=== PATIENT | female | born 1970 | race Caucasian/White ===

== ENCOUNTER 2016-07-15 15:45 | Emergency (ER) | payer BC, OTHER ==
[2016-07-15] MEDS ORDERED: ONDANSETRON HCL IV 4 MG/2 ML VIAL IV ONE (16:40)
[2016-07-15] MEDS ORDERED: 0.9 % SODIUM CHLORIDE 1,000 ML BAG IV ONE (16:40)
[2016-07-15] MEDS ORDERED: MORPHINE SULFATE 5 MG/ML PFS IVP ONE (16:41)
--- NOTE | 2016-07-15 16:42 | Emergency Department Record ---
History of Present Illness - General Chief Complaint: Abdominal Pain Stated Complaint: ABD PAIN Time Seen by Provider: 07/15/16 16:35 Source: Patient Mode of Arrival: Ambulatory - History of Present Illness Initial Comments: 46 yo female presents with left sided abdominal pain since Saturday. The pain comes and goes. It is sharp in nature. No fevers, chills, nausea, or vomiting. No rash. She pain is sharp. She has had prior renal stones. This is similar in character prior stones. No changes in urination or bowel movements. No history of abdominal surgery. MD Complaint: Abdominal pain Onset/Timin -: Week(s) Location: Suprapubic, LLQ Severity: Moderate Quality: Sharp Consistency: Intermittent Improves With: Nothing Worsens With: Nothing Treatments Prior to Arrival: NSAIDs - Related Data Patient : No Home Medications Medication Instructions Recorded Confirmed Last Taken Omeprazole [Omeprazole] 40 mg PO DAILY 01/28/16 07/15/16 07/15/16 Previous Rx's Medication Instructions Recorded Hyoscyamine Sulfate [Levsin-Sl] 0.125 mg SL Q12H #15 tab.subl 07/15/16 Allergies Allergy/AdvReac Type Severity Reaction Status Date / Time Sulfa (Sulfonamide Allergy ANAPHYLAXIS Verified 07/15/16 16:18 Antibiotics) latex AdvReac RASH Verified 07/15/16 16:18 Travel Screening - Travel/Exposure Within Last 30 Days Have you traveled within the last 30 days?: No - Travel/Exposure Within Last Year Have you traveled outside the [place] in the last year?: No - Additonal Travel Details Have you been exposed to anyone with a communicable illness?: No - Travel Symptoms Symptom Screening: None Review of Systems Constitutional: Denies: Chills, Fever, Malaise, Night sweats, Weakness Eyes: Denies: Eye discharge ENT: Denies: Congestion, Epistaxis, Throat pain Respiratory: Denies: Cough, Dyspnea, Hemoptysis, Stridor, Wheezes Cardiovascular: Denies: Chest pain, Palpitations, Syncope Endocrine: Denies: Fatigue Gastrointestinal: Reports: Abdominal pain. Denies: Constipation, Diarrhea, Hematemesis, Hematochezia, Nausea, Vomiting Genitourinary: Denies: Dysuria Musculoskeletal: Denies: Arthralgia, Joint swelling, Myalgia Skin: Denies: Bruising, Change in color Neurological: Denies: Headache, Numbness Psychiatric: Denies: Anxiety Hematological/Lymphatic: Denies: Blood Clots, Easy bleeding, Easy bruising, Swollen glands Past Medical History - SOCIAL HISTORY Smoking Status: Never smoker Alcohol Use: None Drug Use: None - RESPIRATORY Hx Respiratory Disorders: No - CARDIOVASCULAR Hx Cardio Disorders: No - NEURO Hx Neuro Disorders: No - GI Hx GI Disorders: Yes Hx Reflux: Yes - Hx Genitourinary Disorders: No - ENDOCRINE Hx Endocrine Disorders: No - MUSCULOSKELETAL Hx Musculoskeletal Disorders: No - PSYCH Hx Psych Problems: No - HEMATOLOGY/ONCOLOGY Hx Hematology/Oncology Disorders: No Family Medical History Any Significant Family History?: No Physical Exam - General General Appearance: Alert, Oriented x3, Cooperative, No acute distress Limitations: No limitations - Head Head exam: Normal inspection - Eye Eye exam: Normal appearance. negative: Conjunctival injection, Scleral icterus - ENT ENT exam: Normal exam Ear exam: Normal external inspection Nasal Exam: Normal inspection Mouth exam: Normal external inspection Teeth exam: Normal inspection Throat exam: Normal inspection - Neck Neck exam: Normal inspection, Full ROM. negative: Tenderness - Respiratory Respiratory exam: Normal lung sounds bilaterally. negative: Accessory muscle use, Respiratory distress, Rhonchi, Stridor, Wheezes - Cardiovascular Cardiovascular Exam: Regular rate, Normal rhythm, Normal heart sounds - GI/Abdominal GI/Abdominal exam: Soft, Normal bowel sounds, Other (very soft abdomen without tenderness to palpation). negative: Distended, Rebound, Rigid, Tenderness - Rectal Rectal exam: Deferred - exam: Deferred - Extremities Extremities exam: Normal inspection, Full ROM, Normal capillary refill. negative: Tenderness - Back Back exam: Reports: Full ROM. Denies: CVA tenderness (R), CVA tenderness (L), Paraspinal tenderness, Tenderness, Vertebral tenderness - Neurological Neurological exam: Alert, Normal gait, Oriented X3 - Psychiatric Psychiatric exam: Normal affect, Normal mood - Skin Skin exam: Dry, Intact, Normal color, Warm Course Vital Signs 07/15/16 16:18 Temperature 97.8 F Pulse Rate 72 Respiratory 18 Rate Blood Pressure 131/79 Pulse Ox 99 - Reevaluation(s) Reevaluation #1: The CBC is in the normal range the patient's pain is well controlled. 07/15/16 17:37 Reevaluation #2: The labs and UA were reviewed No acute changes. The CT scan of the abdomen was negative for any acute pathology 07/15/16 18:07 We discussed the test results No acute findings She has follow up Saturday with her PCP She has had a colonoscopy many years ago so she will be referred to GI as well. 07/15/16 18:24 Medical Decision Making - Lab Data Result diagrams: 07/15/16 16:35 07/15/16 16:35 Disposition Disposition: Discharge Clinical Impression: Abdominal pain Qualifiers: Abdominal location: left upper quadrant Qualified Code(s): R10.12 - Left upper quadrant pain Disposition: Home, Self-Care Condition: (1) Good Instructions: Abdominal Pain (ED) Additional Instructions: Call your doctor tomorrow for close follow up of your symptoms Return if you have fever, vomiting or uncontrolled pain or concerns Prescriptions: Hyoscyamine Sulfate [Levsin-Sl] 0.125 mg SL Q12H #15 tab.subl Referrals: DORYS FITZGERALD [MEDICAL DOCTOR] - Forms: Patient Portal Access Time of Disposition: 18:09
[2016-07-15 17:02] LABS: BASO % 0.3 % (0-6); EOS % 3.7 % (0-6); GRAN % 57.1 % (47-80); HEMATOCRIT 42.1 % (35.0-47.0); LYMPH % 33.1 % (16-45); MEAN CORPUSCULAR HEMOGLOBIN 29.9 pg (27-33); MEAN CORPUSCULAR HGB CONC 33.3 g/dl (32-36); MEAN PLATELET VOLUME 11.3 fl (7.4-10.4); MONO % 5.8 % (0-9); PLATELET COUNT 330 K/uL (130-400); RED BLOOD COUNT 4.68 M/uL (3.80-5.40); RED CELL DISTRIBUTION WIDTH 13.1 % (11.5-14.5); WHITE BLOOD COUNT W/O DIFF 9.7 K/uL (4.2-12.2)
[2016-07-15 17:04] LABS: HCG,QUALITATIVE URINE NEGATIVE (NEGATIVE)
[2016-07-15 17:31] LABS: ALB/GLOB RATIO 1.3 (1.1-1.8); ALKALINE PHOSPHATASE 72 U/L (38-126); ALT/SGPT 30 U/L (9-52); AST/SGOT 23 U/L (14-36); BILIRUBIN,TOTAL 0.29 mg/dL (0.2-1.3); BLOOD UREA NITROGEN 13 mg/dL (7-17); CREATININE 0.8 mg/dL (0.52-1.04); EST GLOMERULAR FILTRATION RATE > 60 ml/min; GLUCOSE,RANDOM 91 mg/dL (70-110); LIPASE 111 U/L (23-300); TOTAL PROTEIN 7.1 gm/dL (6.3-8.2)
[2016-07-15 17:45] LABS: URINE APPEARANCE CLEAR; URINE BILIRUBIN NEGATIVE (NEGATIVE); URINE COLOR YELLOW; URINE GLUCOSE (UA) NEGATIVE (NEGATIVE)
[2016-07-15 17:46] LABS: URINE BLOOD NEGATIVE (NEGATIVE); URINE KETONE TRACE (NEGATIVE); URINE LEUKOCYTE ESTERASE NEGATIVE (NEGATIVE); URINE NITRITE NEGATIVE (NEGATIVE); URINE PROTEIN TRACE (NEGATIVE); URINE UROBILINOGEN 0.2 E.U./dL (0.20 - 1.00)
== END 2016-07-15 18:44 | disposition home or self-care (01) ==
LOC: ER 15:45
DX: R10.12 Left upper quadrant pain (principal); Z87.442 Personal history of urinary calculi
CPT/HCPCS: 99284 ×2; 96374; 96375; 83690; 85025; 80053; 81003; 81025; 74176; J2405; J2270; J7030

== ENCOUNTER 2017-09-13 06:05 | Emergency (ER) | payer BC ==
[2017-09-13] MEDS ORDERED: 0.9 % SODIUM CHLORIDE 1,000 ML BAG IV ONE (06:18)
[2017-09-13] MEDS ORDERED: ACETAMINOPHEN 1,000 MG/100 ML BTL IVPB ONE (06:18)
--- NOTE | 2017-09-13 06:19 | Emergency Department Record ---
History of Present Illness <Nitin Campo - Last Filed: 09/13/17 09:32> - General Source: Patient Mode of Arrival: Ambulatory Limitations: No limitations - History of Present Illness Initial Comments: 47 yo female presents with left sided abdominal pain that started about 1:30pm yesterday. The pain is in the LUQ to the LLQ. The pain is a burning type ache. She has had renal stone in the past but states this is not similar. No fever, dysuria or changes in the bowel movements. No vomiting. She denies any other recent illness. She is not aware of any history of diverticulitis. MD Complaint: Abdominal pain -: Days(s) (1) Location: LUQ, LLQ Radiation: LUQ, LLQ Migration to: LUQ, LLQ Severity: Moderate Quality: Aching, Cramping Consistency: Constant Improves With: Nothing Worsens With: Movement Associated Symptoms: Denies other symptoms <SINTIA LIANG - Last Filed: 09/14/17 00:26> - General Chief Complaint: Abdominal Pain Stated Complaint: ABD PAIN Time Seen by Provider: 09/13/17 06:06 - Related Data Previous Rx's Medication Instructions Recorded Ciprofloxacin HCl [Cipro] 500 mg PO Q12HR #14 tablet 09/13/17 Metronidazole [Flagyl] 500 mg PO TID #21 tablet 09/13/17 Naproxen [Naprosyn] 500 mg PO BID #14 tablet. 09/13/17 Allergies Allergy/AdvReac Type Severity Reaction Status Date / Time Sulfa (Sulfonamide Allergy ANAPHYLAXIS Verified 07/15/16 16:18 Antibiotics) latex AdvReac RASH Verified 07/15/16 16:18 Review of Systems Constitutional: Denies: Chills, Fever, Malaise, Weakness Eyes: Denies: Eye discharge ENT: Denies: Congestion, Throat pain Respiratory: Denies: Cough, Dyspnea, Hemoptysis, Stridor, Wheezes Cardiovascular: Denies: Chest pain, Palpitations, Syncope Endocrine: Denies: Fatigue, Polydipsia, Polyuria Gastrointestinal: Reports: As per HPI, Abdominal pain, Nausea. Denies: Constipation, Diarrhea, Hematemesis, Hematochezia, Vomiting Genitourinary: Denies: Dyspareunia, Dysuria, Frequency, Hematuria, Urgency Musculoskeletal: Reports: Back pain. Denies: Arthralgia, Joint swelling, Myalgia, Neck pain Skin: Denies: Bruising, Change in color, Rash Neurological: Denies: Headache, Numbness, Weakness Psychiatric: Denies: Anxiety Hematological/Lymphatic: Denies: Easy bleeding, Easy bruising, Swollen glands <SINTIA LIANG - Last Filed: 09/14/17 00:26> Past Medical History - SOCIAL HISTORY Smoking Status: Never smoker Drug Use: None - RESPIRATORY Hx Respiratory Disorders: No - CARDIOVASCULAR Hx Cardio Disorders: No - NEURO Hx Neuro Disorders: No - GI Hx GI Disorders: Yes Hx Reflux: Yes - Hx Genitourinary Disorders: No - ENDOCRINE Hx Endocrine Disorders: No - MUSCULOSKELETAL Hx Musculoskeletal Disorders: No - PSYCH Hx Psych Problems: No - HEMATOLOGY/ONCOLOGY Hx Hematology/Oncology Disorders: No <SINTIA LIANG - Last Filed: 09/14/17 00:26> Physical Exam - General General Appearance: Alert, Oriented x3, Cooperative, No acute distress Limitations: No limitations - Head Head exam: Normal inspection - Eye Eye exam: Normal appearance. negative: Conjunctival injection, Scleral icterus - ENT ENT exam: Normal exam, Mucous membranes moist, Normal orophraynx Ear exam: Normal external inspection Nasal Exam: Normal inspection Mouth exam: Normal external inspection - Neck Neck exam: Normal inspection, Full ROM. negative: Tenderness - Respiratory Respiratory exam: Normal lung sounds bilaterally. negative: Respiratory distress, Rhonchi, Stridor, Wheezes - Cardiovascular Cardiovascular Exam: Regular rate, Normal rhythm, Normal heart sounds - GI/Abdominal GI/Abdominal exam: Soft, Tenderness (The patient is tender in the LUQ to the LLQ. The remainder of the abdomen is very soft and not tender). negative: Distended, Guarding, Rebound, Rigid - Rectal Rectal exam: Deferred - exam: Deferred - Extremities Extremities exam: Normal inspection, Full ROM, Normal capillary refill. negative: Tenderness - Back Back exam: Reports: Normal inspection, Full ROM. Denies: Muscle spasm, Rash noted, Tenderness - Neurological Neurological exam: Alert, Normal gait, Oriented X3 - Psychiatric Psychiatric exam: Normal affect, Normal mood - Skin Skin exam: Dry, Intact, Normal color, Warm <SINTIA LIANG - Last Filed: 09/14/17 00:26> Course Vital Signs 09/13/17 09/13/17 09/13/17 06:11 07:44 09:03 Temperature 98.3 F Pulse Rate [ 77 67 59 L Pulse Ox Probe] Respiratory 18 20 16 Rate Blood Pressure 130/78 115/92 124/79 [Left Arm] Pulse Ox 97 99 98 - Reevaluation(s) Reevaluation #2: The patient is resting comfortably. She denies any need for pain medicine at this time and will be going to CT soon. 09/13/17 08:20 Reevaluation #3: The patient is doing well at this time. She denies any AP or nausea but does have mild LLQ tenderness on exam. The pain is very mild at this time and she is not requesting any medicines. I did discuss the CT results that do demonstrate mild L lower descending colon and proximal sigmoid wall thickening consistent with nonspecific colitis. Since the patient has no significant diarrhea we will treat her as an outpatient for Diverticulitis. She is to take the Abx's at home and see her PCP early next week for recheck. 09/13/17 09:32 <Nitin Campo - Last Filed: 09/13/17 09:32> Vital Signs 09/13/17 06:11 Temperature 98.3 F Pulse Rate [ 77 Pulse Ox Probe] Respiratory 18 Rate Blood Pressure 130/78 [Left Arm] Pulse Ox 97 - Reevaluation(s) Reevaluation #1: 09/13/17 06:35 The CBC was reviewed No acute changes The UA was reviewed. No blood in the urine. CT with contrast ordered. 09/13/17 06:52 No acute changes on the CMP or Lipase 09/13/17 07:00 The case was turned over to Dr Campo for remaining results and recheck of the patient <SINTIA LIANG - Last Filed: 09/14/17 00:26> Medical Decision Making - Data Complexity MDM Data: Labs Ordered and/or Reviewed, X-Ray Ordered and/or Reviewed - Lab Data Result diagrams: 09/13/17 06:25 09/13/17 06:25 Lab Results 09/13/17 09/13/17 09/13/17 Range/Units 06:25 06:25 06:25 WBC 8.8 (4.2-12.2) K/uL RBC 4.60 (3.80-5.40) M/uL Hgb 13.6 (11.6-16.0) gm/dl Hct 41.4 (35.0-47.0) % MCV 90.0 (81-97) fl MCH 29.6 (27-33) pg MCHC 32.9 (32-36) g/dl RDW 13.3 (11.5-14.5) % Plt Count 284 (130-400) K/uL MPV 10.8 H (7.4-10.4) fl Gran % 63.2 (47-80) % Lymphocytes % 26.8 (16-45) % Monocytes % 6.6 (0-9) % Eosinophils % 3.1 (0-6) % Basophils % 0.3 (0-6) % Sodium 142 (136-145) mmol/L Potassium 4.1 (3.4-4.5) mmol/L Chloride 106 (98-107) mmol/L Carbon Dioxide 23.0 (22-29) mmol/L Anion Gap 13.0 (7-16) BUN 16 (6-20) mg/dL Creatinine 0.7 (0.5-0.9) mg/dL Estimated GFR > 60 mL/min Random Glucose 106 (74-109) mg/dL Calcium 8.8 (8.6-10.0) mg/dL Total Bilirubin 0.40 (0.2-1.0) mg/dL AST 12 (10.0-35.0) U/L ALT 13 (<33) U/L Alkaline Phosphatase 59 (35-104) U/L Total Protein 6.4 L (6.6-8.7) g/dL Albumin 3.6 L (4.0-5.0) g/dL Globulin 2.8 (1.4-4.8) gm/dL Albumin/Globulin Ratio 1.3 (1.1-1.8) Lipase 30 (13-60) U/L Urine Color Yellow Urine Appearance Clear Urine pH 7.0 (5.0-8.0) Ur Specific [place] 1.010 (1.002-1.030) Urine Protein Negative (NEGATIVE) Urine Glucose (UA) Negative (NEGATIVE) Urine Ketones Negative (NEGATIVE) Urine Blood Negative (NEGATIVE) Urine Nitrite Negative (NEGATIVE) Urine Bilirubin Negative (NEGATIVE) Urine Urobilinogen 0.2 (0.20 - 1.00) E.U./dL Ur Leukocyte Esterase Negative (NEGATIVE) Urine HCG, Qual Negative (NEGATIVE) - Radiology Data Radiology results: Report reviewed (CT: Nonspecific distal descending colon and proximal sigmoid wall thickening consistent with colitis.) <Nitin Campo - Last Filed: 09/13/17 09:32> - Lab Data Result diagrams: 09/13/17 06:25 09/13/17 06:25 <SINTIA LIANG - Last Filed: 09/14/17 00:26> Disposition Disposition: Discharge Time of Disposition: 09:37 <Nitin Campo - Last Filed: 09/13/17 09:32> <SINTIA LIANG - Last Filed: 09/14/17 00:26> Clinical Impression: Diverticulitis large intestine Qualifiers: Diverticulitis bleeding: without bleeding Diverticulitis complication: unspecified complication status Qualified Code(s): K57.32 - Diverticulitis of large intestine without perforation or abscess without bleeding Disposition: Home, Self-Care Condition: (2) Stable Instructions: Diverticulitis (ED) Additional Instructions: Please use Tylenol for pain and also take Naprosyn if needed. Start the Cipro and Flagyl tomorrow. Please see your family doctor early next week for recheck. Return to the ER for any worsening pain, fever, or vomiting. Prescriptions: Ciprofloxacin HCl [Cipro] 500 mg PO Q12HR #14 tablet Metronidazole [Flagyl] 500 mg PO TID #21 tablet Naproxen [Naprosyn] 500 mg PO BID #14 tablet.dr Forms: Patient Portal Access Quality - Blood Pressure Screening Does Patient Have Any of the Following: No Blood Pressure Classification: Pre-Hypertensive BP Reading Systolic Measurement: 124 Diastolic Measurement: 79 Screening for High Blood Pressure: < Pre-Hypertensive BP, F/U Documented > [ G8950] <Nitin Campo - Last Filed: 09/13/17 09:32> - Quality Measures Quality Measures: N/A - Blood Pressure Screening Does Patient Have Any of the Following: No Blood Pressure Classification: Pre-Hypertensive BP Reading Systolic Measurement: 133 Diastolic Measurement: 79 Screening for High Blood Pressure: < Pre-Hypertensive BP, F/U Documented > [ G8950] Pre-Hypertensive Follow-up Interventions: Referral to alternative/primary care provider. <SINTIA LIANG - Last Filed: 09/14/17 00:26>
[2017-09-13 06:32] LABS: BASO % 0.3 % (0-6); EOS % 3.1 % (0-6); GRAN % 63.2 % (47-80); HEMATOCRIT 41.4 % (35.0-47.0); HEMOGLOBIN 13.6 gm/dl (11.6-16.0); LYMPH % 26.8 % (16-45); MEAN CORPUSCULAR HEMOGLOBIN 29.6 pg (27-33); MEAN CORPUSCULAR HGB CONC 32.9 g/dl (32-36); MEAN PLATELET VOLUME 10.8 fl (7.4-10.4); MONO % 6.6 % (0-9); PLATELET COUNT 284 K/uL (130-400); RED CELL DISTRIBUTION WIDTH 13.3 % (11.5-14.5); WHITE BLOOD COUNT W/O DIFF 8.8 K/uL (4.2-12.2)
[2017-09-13 06:33] LABS: URINE APPEARANCE CLEAR; URINE BILIRUBIN NEGATIVE (NEGATIVE); URINE BLOOD NEGATIVE (NEGATIVE); URINE COLOR YELLOW; URINE GLUCOSE (UA) NEGATIVE (NEGATIVE); URINE KETONE NEGATIVE (NEGATIVE); URINE LEUKOCYTE ESTERASE NEGATIVE (NEGATIVE); URINE NITRITE NEGATIVE (NEGATIVE); URINE PROTEIN NEGATIVE (NEGATIVE); URINE UROBILINOGEN 0.2 E.U./dL (0.20 - 1.00)
[2017-09-13 06:34] LABS: HCG,QUALITATIVE URINE NEGATIVE (NEGATIVE)
[2017-09-13 06:41] LABS: BLOOD UREA NITROGEN 16 mg/dL (6-20)
[2017-09-13 06:42] LABS: CREATININE 0.7 mg/dL (0.5-0.9); EST GLOMERULAR FILTRATION RATE > 60 mL/min; TOTAL PROTEIN 6.4 g/dL (6.6-8.7)
[2017-09-13 06:44] LABS: GLUCOSE,RANDOM 106 mg/dL (74-109)
[2017-09-13 06:47] LABS: ALB/GLOB RATIO 1.3 (1.1-1.8); ALBUMIN 3.6 g/dL (4.0-5.0); ALKALINE PHOSPHATASE 59 U/L (35-104); ALT/SGPT 13 U/L (<33); AST/SGOT 12 U/L (10.0-35.0); LIPASE 30 U/L (13-60)
[2017-09-13] MEDS ORDERED: KETOROLAC 30 MG/ML VIAL IVP ONE (06:52)
[2017-09-13] MEDS ORDERED: ERTAPENEM SODIUM 1 G in 0.9 % SODIUM CHLORIDE 100ML 100 ML IVPB ONE (09:29)
[2017-09-13] MEDS ORDERED: ONDANSETRON HCL IV 4 MG/2 ML VIAL IVP ONE (10:04)
--- NOTE | 2017-09-14 14:47 | CT SCAN REPORT ---
DATE: 09/13/2017. EXAM: CT OF THE ABDOMEN AND PELVIS. HISTORY: Abdominal pain. TECHNIQUE: CT of the abdomen and pelvis was performed following intravenous administration of 100 mL of Omnipaque 300 contrast. Oral contrast was also utilized. COMPARISON: Prior CT dated 07/15/2016. FINDINGS: Limited evaluation of the lung bases is unremarkable. Osseous structures are grossly intact. Stable hepatic cyst. The spleen, adrenal glands , pancreas, and kidneys are unremarkable. The gallbladder is present. No gross evidence for bowel obstruction. Intrauterine device in place. No free air. Abundant stool in the colon and rectal vault. A trace of free fluid in the pelvis. There is minor wall thickening of the sigmoid colon with some surrounding inflammatory change suggesting nonspecific colitis. No discrete abscess. IMPRESSION: NONSPECIFIC DESCENDING COLITIS WITH A TRACE OF FREE FLUID IN THE PELVIS. NO ABSCESS OR FREE AIR. JOB NUMBER: [id number] MTDD
== END 2017-09-13 10:29 | disposition home or self-care (01) ==
LOC: ER 06:05
DX: K57.32 Diverticulitis of large intestine without perforation or abscess without bleeding (principal)
CPT/HCPCS: 99284 ×2; 96365; 96366; 96375; 83690; 85025; 80053; 81003; 81025; 74177; Q9967; J1335; J1885; J2405; J7030